=== PATIENT | male | born 1940 | race Caucasian/White ===

== ENCOUNTER 2016-12-09 17:56 | Inpatient (IN) | payer MEDICARE, MEDICAID ==
[~2016-12-09] VITALS: Ht 172.7 cm; Wt 62.1 kg
[~2016-12-09 17:56] MED LIST: AMLO5TAB4 PO; ASA/500T3 PO; ASCO500T8 PO; CALC1TAB30 PO; CARB-93 PO; CEFT2VIA14 IV; GABA800T PO; GLIM2TAB2 PO; METF500T4 PO; MULT1TAB73 PO; NAPR250T2 PO; OMEP20TA68 PO; POLY17PO4 PO; PROSTAT PO; TAMS-12 PO; TYL2T PO
[2016-12-09 18:17] LABS: BASOPHILS # (AUTO) 0.1 /CMM (0.0-0.2); BASOPHILS % (AUTO) 0.5 % (0.0-2.0); DIFF TOTAL % 100 %; EOSINOPHILS # (AUTO) 0.1 /CMM (0.0-0.7); EOSINOPHILS % (AUTO) 0.2 % (0.0-6.0); HEMATOCRIT 47 % (39-51); LYMPHOCYTES # (AUTO) 0.9 /CMM (0.8-4.8); LYMPHOCYTES % (AUTO) 3.2 % (20.0-44.0); MEAN CORPUSCULAR HEMOGLOBIN 26 PG (26.0-33.0); MEAN CORPUSCULAR HGB CONC 32 g/dl (31.0-36.0); MEAN CORPUSCULAR VOLUME 81 fL (80-96); MONOCYTES # (AUTO) 1.9 /CMM (0.1-1.30); NEUTROPHILS # (AUTO) 24.4 /CMM (1.8-8.9); NEUTROPHILS % (AUTO) 89.1 % (43.0-81.0); PLATELET COUNT (AUTO) 236 /CMM (150-450); RED BLOOD CELL COUNT(AUTO) 5.84 MIL/uL (4.5-6.0); WHITE BLOOD COUNT (AUTO) 27.4 K/uL (4.3-11.0)
[2016-12-09 18:27] LABS: ANION GAP 13 (5-14); CALCIUM, SERUM 9.4 mg/dL (8.5-10.1); CARBON DIOXIDE 27 mmol/L (21-32); CHLORIDE 102 mmol/L (98-107); CREATININE 1.2 mg/dL (0.6-1.3); GLUCOSE 172 mg/dL (74-106); POTASSIUM 4.9 mmol/L (3.5-5.1); SODIUM SERUM 137 mmol/L (136-145); UREA NITROGEN, BLOOD 21 mg/dL (7-18)
[2016-12-09] MEDS ORDERED: VANCOMYCIN 1 GM in IV D5W 250 ML IV ONE (18:30)
[2016-12-09] MEDS ORDERED: IV NS 0.9% 1,000 ML BAG IV ONE ×2 (18:30→20:00)
[2016-12-09] MEDS ORDERED: CEFTRIAXONE 1GM BAG (ER ONLY) 50 ML IV ONE ×2 (18:30→18:31)
[2016-12-09] MEDS ORDERED: IV SET PRIMARY PUMP SET 1 EA INFUS.SET MC ONE ×2 (18:32→21:16)
[2016-12-09 18:33] LABS: ALANINE AMINOTRANSFERASE 27 U/L (12-78); ALBUMIN 3.7 g/dL (3.4-5.0); ASPARTATE AMINOTRANSFERASE 24 U/L (15-37); BILIRUBIN,DIRECT 0.1 mg/dL (0.0-0.2); BILIRUBIN,TOTAL 0.6 mg/dL (0.2-1.0); INDIRECT BILIRUBIN 0.5 mg/dL (0.0-1.1); TOTAL PROTEIN, SERUM 8.1 g/dL (6.4-8.2)
[2016-12-09 18:35] LABS: TROPONIN I < 0.017 ng/mL (0.00-0.056)
[2016-12-09 18:41] LABS: LACTIC ACID 3.5 mmol/L (0.4-2.0)
[2016-12-09 18:44] LABS: BAND % (MANUAL) 5 % (0.0-5.0); EOSINOPHILS % (MANUAL) 1 % (0-4); LYMPHOCYTES % (MANUAL) 1 % (16-48); PLATELET ESTIMATE ADEQUATE
[2016-12-09 18:45] LABS: ANISOCYTOSIS 1+; MICROCYTOSIS 1+
[2016-12-09] MEDS ORDERED: GLIM1TAB PO (19:02)
[2016-12-09] MEDS ORDERED: ONDA4TAB8 PO (19:02)
[2016-12-09] MEDS ORDERED: BISA5TAB10 PO (19:02)
[2016-12-09] MEDS ORDERED: ASPI500T19 PO (19:02)
[2016-12-09] MEDS ORDERED: GABA-534 PO (19:02)
[2016-12-09] MEDS ORDERED: FERR-58 PO (19:02)
[2016-12-09] MEDS ORDERED: LORA1TAB82 PO (19:02)
[2016-12-09] MEDS ORDERED: HYDR-3026 PO (19:02)
[2016-12-09] MEDS ORDERED: TAMS-12 PO (19:02)
[2016-12-09] MEDS ORDERED: CHOL10002 PO (19:02)
[2016-12-09] MEDS ORDERED: CETI5TAB30 PO (19:02)
[2016-12-09 19:10] LABS: *LACTIC ACID REFLEX FLAG YES
[2016-12-09 19:12] LABS: KETONES,URINE NEGATIVE (NEGATIVE); LEUKOCYTE ESTERASE ,URINE 1+ (NEGATIVE); PH,URINE 5.5 (5.0-8.0)
[2016-12-09 19:22] LABS: ADD UA MICROSCOPIC YES
[2016-12-09 19:26] LABS: ADD URINE CULTURE YES
[2016-12-09] MEDS ORDERED: MAG HYDROX/AL HYDROX/SIMETH 30 ML UDC PO PRN (20:00)
[2016-12-09] MEDS ORDERED: Z GUARD REMEDY 2 OZ OINT TP PRN (20:00)
[2016-12-09] MEDS ORDERED: HYDROCODONE/APAP 5/325MG 1 EACH TABLET PO PRN (20:00)
[2016-12-09] MEDS ORDERED: ONDANSETRON HCL/PF 4 MG/2 ML VIAL IVP PRN (20:00)
[2016-12-09] MEDS ORDERED: ACETAMINOPHEN 325 MG TABLET PO PRN (20:00)
[2016-12-09] MEDS ORDERED: ZOLPIDEM TARTRATE 5 MG TABLET PO PRN (20:00)
[2016-12-09] MEDS ORDERED: MAGNESIUM HYDROXIDE 30 ML UDC PO PRN (20:00)
[2016-12-09] MEDS ORDERED: IV NS 0.9% 500 ML IV ONE (20:04)
[2016-12-09] MEDS ORDERED: SECONDARY IV SET 1 EA INFUS.SET MC ONE ×2 (20:04→21:16)
[2016-12-09] MEDS ORDERED: IV SET PRIMARY 1 EA INFUS.SET MC ONE (20:04)
[2016-12-09] MEDS ORDERED: IV NS 0.9% 2,000 ML ONE (20:04)
[2016-12-09] MEDS ORDERED: LORAZEPAM 1 MG TABLET PO PRN (20:30)
[2016-12-09] MEDS ORDERED: ENALAPRILAT DIHYD. (2.5MG/ML) 1.25 MG/ML VIAL IV PRN (20:30)
[2016-12-09] MEDS ORDERED: PIPERACILLIN /TAZOBACTAM 3.375 G VIAL IV ONE (21:14)
[2016-12-09] MEDS ORDERED: TAMSULOSIN 0.4 MG CAP.SR.24H ONE (21:14)
[2016-12-09] MEDS ORDERED: IV NS 0.9% 1,000 ML ONE (21:15)
[2016-12-09] MEDS ORDERED: IV D5W 50 ML IV ONE (21:15)
[2016-12-09] MEDS ORDERED: BISACODYL (5 MG) 5 MG TABLET.DR ONE (21:15)
[2016-12-09] MEDS ORDERED: ENOXAPARIN SODIUM 40 MG/0.4 ML DISP.SYRIN SQ ONE (21:15)
[2016-12-09] MEDS: TAMSULOSIN 0.4 MG CAP.SR.24H PO SCH (22:00)
[2016-12-09] MEDS: BISACODYL (5 MG) 5 MG TABLET.DR PO SCH (22:00)
[2016-12-09] MEDS: ENOXAPARIN SODIUM 40 MG/0.4 ML DISP.SYRIN SQ SCH (22:33)
[2016-12-09] MEDS: IV NS 0.9% 1,000 ML IV PRN (22:36)
[2016-12-10] VITALS: BP 126/55
[2016-12-10] MEDS ORDERED: INSULIN REGULAR, HUMAN 100 UNIT/ML 3 ML VIAL SQ PRN (01:00)
[2016-12-10] MEDS ORDERED: DEXTROSE 50%-WATER 50 ML DISP.SYRIN IV PRN (01:00)
[2016-12-10] MEDS ORDERED: ALBUTEROL FS 2.5 MG/3 ML VIAL.NEB NEB PRN (01:00)
[2016-12-10] MEDS: PIPERACILLIN /TAZOBACTAM 3.375 G in IV D5W 50 ML IV SCH ×4 (01:17→17:08)
[2016-12-10] MEDS ORDERED: ALBUTEROL FS 2.5 MG/3 ML VIAL.NEB ONE (03:05)
[2016-12-10] MEDS: ALBUTEROL FS 2.5 MG/3 ML VIAL.NEB NEB SCH ×6 (03:10→23:30)
[2016-12-10 04:00] VITALS: BP 114/43
[2016-12-10] MEDS ORDERED: PIPERACILLIN /TAZOBACTAM 3.375 G VIAL IV ONE (05:11)
[2016-12-10] MEDS ORDERED: IV D5W 50 ML IV ONE (05:12)
[2016-12-10] MEDS ORDERED: HYDROCODONE/APAP 5/325MG 1 EACH TABLET ONE (05:33)
[2016-12-10] MEDS ORDERED: HYDROMORPHONE 1 MG/1 ML DISP.SYRIN ONE (06:09)
[2016-12-10] MEDS: HYDROMORPHONE 1 MG/1 ML DISP.SYRIN IV PRN ×4 (06:23→20:51)
[2016-12-10] MEDS: BLOOD SUGAR DIAGNOSTIC 1 EACH STRIP IN SCH ×4 (07:07→21:14)
[2016-12-10 07:18] LABS: BASOPHILS # (AUTO) 0.1 /CMM (0.0-0.2); BASOPHILS % (AUTO) 0.3 % (0.0-2.0); DIFF TOTAL % 100 %; EOSINOPHILS # (AUTO) 0.3 /CMM (0.0-0.7); EOSINOPHILS % (AUTO) 1.7 % (0.0-6.0); HEMATOCRIT 40 % (39-51); LYMPHOCYTES # (AUTO) 1.2 /CMM (0.8-4.8); LYMPHOCYTES % (AUTO) 7.6 % (20.0-44.0); MEAN CORPUSCULAR HEMOGLOBIN 26 PG (26.0-33.0); MEAN CORPUSCULAR HGB CONC 33 g/dl (31.0-36.0); MEAN CORPUSCULAR VOLUME 81 fL (80-96); MONOCYTES # (AUTO) 1.4 /CMM (0.1-1.30); MONOCYTES % (AUTO) 8.7 % (2.0-12.0); NEUTROPHILS # (AUTO) 13.3 /CMM (1.8-8.9); NEUTROPHILS % (AUTO) 81.7 % (43.0-81.0); PLATELET COUNT (AUTO) 166 /CMM (150-450); RED BLOOD CELL COUNT(AUTO) 4.96 MIL/uL (4.5-6.0); WHITE BLOOD COUNT (AUTO) 16.3 K/uL (4.3-11.0)
[2016-12-10 07:58] LABS: CALCIUM, SERUM 8.1 mg/dL (8.5-10.1); CREATININE 0.8 mg/dL (0.6-1.3); PHOSPHORUS 3.5 mg/dL (2.5-4.9); POTASSIUM 3.9 mmol/L (3.5-5.1)
[2016-12-10 08:00] VITALS: BP_SYST 114; BP_DIAS 51; BP_DIAS 73
[2016-12-10] MEDS: AMLODIPINE BESYLATE 5 MG TABLET PO SCH (08:58)
[2016-12-10] MEDS ORDERED: GABAPENTIN 300 MG CAPSULE PO SCH (09:00)
[2016-12-10] MEDS: FERROUS SULFATE (325 MG) 325 MG/TAB TABLET PO SCH (09:23)
[2016-12-10] MEDS: PANTOPRAZOLE 40 MG TABLET.DR PO SCH (09:23)
[2016-12-10] MEDS ORDERED: SECONDARY IV SET 1 EA INFUS.SET MC ONE (10:40)
[2016-12-10] MEDS: Magnesium 1GM/D5W 100ML PREMIX 100 ML IV SCH ×2 (10:41→11:50)
[2016-12-10] MEDS: IV NS 0.9% 1,000 ML IV PRN ×2 (10:41→21:01)
[2016-12-10 12:00] VITALS: BP 100/71
[2016-12-10] MEDS: GABAPENTIN 300 MG CAPSULE PO SCH ×2 (12:00→17:09)
[2016-12-10 16:00] VITALS: BP 124/58
[2016-12-10] MEDS: POLYETHYLENE GLYCOL 3350 17 GM POWD.PACK PO SCH (17:09)
[2016-12-10 20:00] VITALS: BP 127/34
[2016-12-10] MEDS: ENOXAPARIN SODIUM 40 MG/0.4 ML DISP.SYRIN SQ SCH (20:45)
[2016-12-10] MEDS: TAMSULOSIN 0.4 MG CAP.SR.24H PO SCH (20:52)
[2016-12-10] MEDS: BISACODYL (5 MG) 5 MG TABLET.DR PO SCH (20:57)
[2016-12-11] VITALS: BP 119/47
[2016-12-11] MEDS: HYDROMORPHONE 1 MG/1 ML DISP.SYRIN IV PRN ×6 (00:35→21:27)
[2016-12-11] MEDS: PIPERACILLIN /TAZOBACTAM 3.375 G in IV D5W 50 ML IV SCH ×4 (00:35→18:55)
[2016-12-11] MEDS: ALBUTEROL FS 2.5 MG/3 ML VIAL.NEB NEB SCH ×6 (03:30→23:16)
[2016-12-11 04:00] VITALS: BP 134/63
[2016-12-11] MEDS: BLOOD SUGAR DIAGNOSTIC 1 EACH STRIP IN SCH ×4 (06:49→21:31)
[2016-12-11 07:17] LABS: BASOPHILS % (AUTO) 0.3 % (0.0-2.0); CALCIUM, SERUM 8.3 mg/dL (8.5-10.1); CREATININE 0.8 mg/dL (0.6-1.3); DIFF TOTAL % 100 %; EOSINOPHILS # (AUTO) 0.7 /CMM (0.0-0.7); EOSINOPHILS % (AUTO) 7.1 % (0.0-6.0); HEMATOCRIT 40 % (39-51); MEAN CORPUSCULAR HEMOGLOBIN 27 PG (26.0-33.0); MEAN CORPUSCULAR HGB CONC 33 g/dl (31.0-36.0); MEAN CORPUSCULAR VOLUME 82 fL (80-96); MONOCYTES # (AUTO) 0.9 /CMM (0.1-1.30); MONOCYTES % (AUTO) 9.3 % (2.0-12.0); NEUTROPHILS # (AUTO) 7.2 /CMM (1.8-8.9); NEUTROPHILS % (AUTO) 73.3 % (43.0-81.0); PLATELET COUNT (AUTO) 164 /CMM (150-450); POTASSIUM 4.3 mmol/L (3.5-5.1); RED BLOOD CELL COUNT(AUTO) 4.87 MIL/uL (4.5-6.0); WHITE BLOOD COUNT (AUTO) 9.8 K/uL (4.3-11.0)
[2016-12-11 08:00] VITALS: BP 119/29
[2016-12-11] MEDS: PANTOPRAZOLE 40 MG TABLET.DR PO SCH (08:13)
[2016-12-11] MEDS: FERROUS SULFATE (325 MG) 325 MG/TAB TABLET PO SCH (08:13)
[2016-12-11] MEDS: GABAPENTIN 300 MG CAPSULE PO SCH ×3 (08:13→17:20)
[2016-12-11] MEDS: AMLODIPINE BESYLATE 5 MG TABLET PO SCH (08:14)
[2016-12-11] MEDS: IV NS 0.9% 1,000 ML IV PRN (09:12)
[2016-12-11 12:00] VITALS: BP_SYST 99; BP_DIAS 29; BP_DIAS 39
[2016-12-11 16:00] VITALS: BP 130/35
[2016-12-11] MEDS: POLYETHYLENE GLYCOL 3350 17 GM POWD.PACK PO SCH (17:20)
[2016-12-11] MEDS ORDERED: IV NS 0.9% 1,000 ML IV PRN (19:02)
[2016-12-11] MEDS: ENOXAPARIN SODIUM 40 MG/0.4 ML DISP.SYRIN SQ SCH (19:34)
[2016-12-11 20:00] VITALS: BP 130/66
[2016-12-11] MEDS: BISACODYL (5 MG) 5 MG TABLET.DR PO SCH (21:31)
[2016-12-11] MEDS: TAMSULOSIN 0.4 MG CAP.SR.24H PO SCH (21:31)
[2016-12-12] VITALS: BP 98/47
[2016-12-12] MEDS: PIPERACILLIN /TAZOBACTAM 3.375 G in IV D5W 50 ML IV SCH ×3 (00:41→12:41)
[2016-12-12] MEDS: HYDROMORPHONE 1 MG/1 ML DISP.SYRIN IV PRN ×4 (00:42→13:25)
[2016-12-12] MEDS: ALBUTEROL FS 2.5 MG/3 ML VIAL.NEB NEB SCH ×4 (02:50→15:16)
[2016-12-12 04:00] VITALS: BP 96/40
[2016-12-12 07:07] LABS: BASOPHILS # (AUTO) 0.1 /CMM (0.0-0.2); BASOPHILS % (AUTO) 0.6 % (0.0-2.0); DIFF TOTAL % 100 %; EOSINOPHILS # (AUTO) 0.8 /CMM (0.0-0.7); EOSINOPHILS % (AUTO) 9.2 % (0.0-6.0); HEMATOCRIT 39 % (39-51); HEMOGLOBIN 12.9 g/dL (13.5-17.5); LYMPHOCYTES # (AUTO) 1.1 /CMM (0.8-4.8); LYMPHOCYTES % (AUTO) 13.8 % (20.0-44.0); MEAN CORPUSCULAR HEMOGLOBIN 26 PG (26.0-33.0); MEAN CORPUSCULAR HGB CONC 33 g/dl (31.0-36.0); MEAN CORPUSCULAR VOLUME 80 fL (80-96); MONOCYTES # (AUTO) 0.8 /CMM (0.1-1.30); MONOCYTES % (AUTO) 10.1 % (2.0-12.0); NEUTROPHILS # (AUTO) 5.5 /CMM (1.8-8.9); NEUTROPHILS % (AUTO) 66.3 % (43.0-81.0); PLATELET COUNT (AUTO) 162 /CMM (150-450); RED BLOOD CELL COUNT(AUTO) 4.89 MIL/uL (4.5-6.0); WHITE BLOOD COUNT (AUTO) 8.3 K/uL (4.3-11.0)
[2016-12-12] MEDS: BLOOD SUGAR DIAGNOSTIC 1 EACH STRIP IN SCH ×2 (07:30→12:00)
[2016-12-12 08:00] VITALS: BP 116/39
[2016-12-12 08:16] LABS: CALCIUM, SERUM 8.6 mg/dL (8.5-10.1); CREATININE 0.9 mg/dL (0.6-1.3); POTASSIUM 3.9 mmol/L (3.5-5.1)
[2016-12-12] MEDS: PANTOPRAZOLE 40 MG TABLET.DR PO SCH (08:21)
[2016-12-12] MEDS: FERROUS SULFATE (325 MG) 325 MG/TAB TABLET PO SCH (08:21)
[2016-12-12] MEDS: GABAPENTIN 300 MG CAPSULE PO SCH ×2 (08:22→12:41)
[2016-12-12] MEDS: AMLODIPINE BESYLATE 5 MG TABLET PO SCH (08:23)
[2016-12-12 12:00] VITALS: BP 108/33
[2016-12-12] MEDS ORDERED: HYDR-3326 PO (13:15)
[2016-12-12] MEDS ORDERED: NITR100C15 PO (13:15)
== END 2016-12-12 16:34 | DRG 871 ==
LOC: ER 17:58 → TELE-TD 20:37 → TELE1 21:16
PROVIDERS: ADMIT Internal Medicine; ATTEND Internal Medicine
PROC: 05H633Z Insertion of Infusion Device into Left Subclavian Vein, Percutaneous Approach (ICD-10-PCS; principal; 2016-12-12)
DX: A41.9 Sepsis, unspecified organism (principal); G93.41 Metabolic encephalopathy; N39.0 Urinary tract infection, site not specified; D68.59 Other primary thrombophilia; E87.2 Acidosis; G20 Parkinson's disease; K21.9 Gastro-esophageal reflux disease without esophagitis; M19.90 Unspecified osteoarthritis, unspecified site; N40.1 Benign prostatic hyperplasia with lower urinary tract symptoms; Z66 Do not resuscitate; E78.5 Hyperlipidemia, unspecified; D69.6 Thrombocytopenia, unspecified; D64.9 Anemia, unspecified; N18.9 Chronic kidney disease, unspecified; I70.90 Unspecified atherosclerosis; R65.20 Severe sepsis without septic shock; E11.22 Type 2 diabetes mellitus with diabetic chronic kidney disease; G62.9 Polyneuropathy, unspecified; J44.9 Chronic obstructive pulmonary disease, unspecified; G89.29 Other chronic pain; F03.90 Unspecified dementia, unspecified severity, without behavioral disturbance, psychotic disturbance, mood disturbance, and anxiety; I12.9 Hypertensive chronic kidney disease with stage 1 through stage 4 chronic kidney disease, or unspecified chronic kidney disease
CPT/HCPCS: 36415; 71010-TC; 80048-TC; 80076-TC; 81000-TC; 82962-TC; 83605-TC; 83735-TC; 84100-TC; 84484-TC; 85025-TC; 87040-TC; 87081-TC; 87086-TC; 87186-TC; 94799-TC; 97001-TC; A4606; J0696; J1170; J1650; J1815; J2543; J3370; J3475; J3490; J7030; J7040; J7060; Z7610